=== PATIENT | male | born 1990 | race Caucasian/White ===

== ENCOUNTER 2016-06-16 01:41 | Inpatient (IN) | payer MEDICAID ==
[~2016-06-16] VITALS: Ht 172.7 cm; Wt 98.8 kg
[~2016-06-16 01:41] MED LIST: ILOP2TAB2 PO; ILOP4TAB2 PO
[2016-06-16 03:02] VITALS: BP 146/69
[2016-06-16] MEDS ORDERED: LORazepam 2 MG TABLET PO PRN (04:15)
[2016-06-16] MEDS ORDERED: ZOLPIDEM TARTRATE 10 MG TABLET PO PRN (04:15)
[2016-06-16 05:16] LABS: BASOPHILS # (AUTO) 0.03 K/uL (0.00-0.20); BASOPHILS % (AUTO) 0.2 % (0.0-2.0); EOSINOPHILS # (AUTO) 0.43 K/uL (0.00-0.70); HEMATOCRIT 46.9 % (41-53); HEMOGLOBIN 15.5 g/dL (13.5-17.5); LYMPHOCYTES # (AUTO) 2.9 K/uL (1.0-4.8); LYMPHOCYTES % (AUTO) 19.5 % (22.0-44.0); MEAN CORPUSCULAR HEMOGLOBIN 30.1 pg (26.0-34.0); MEAN CORPUSCULAR HGB CONC 32.9 G/dL (31.0-37.0); MEAN CORPUSCULAR VOLUME 91 fL (80-100); MONOCYTES # (AUTO) 1.3 K/uL (0.1-1.0); MONOCYTES % (AUTO) 8.4 % (2.0-9.0); NEUTROPHILS # (AUTO) 10.3 K/uL (1.8-7.7); PLATELET COUNT (AUTO) 282 K/uL (150-450); RED BLOOD CELL COUNT(AUTO) 5.14 MIL/uL (4.50-5.90); RED CELL DISTRIBUTION WIDTH 12.6 % (11.5-14.5); WHITE BLOOD COUNT (AUTO) 14.9 K/uL (4.5-11.0)
[2016-06-16 05:25] LABS: ANION GAP 6 mmol/L (8-16); CALCIUM, TOTAL 9.2 mg/dL (8.8-10.5); CARBON DIOXIDE 31 mmol/L (22-29); CHLORIDE 103 mmol/L (98-107); CREATININE 0.99 mg/dL (0.60-1.30); GLOMERULAR FILTR. RATE CALC > 60 mL/min (>60); POTASSIUM 4.8 mmol/L (3.5-5.1); SODIUM SERUM 140 mmol/L (136-145); UREA NITROGEN, BLOOD 21 mg/dL (7-18)
[2016-06-16 05:33] LABS: ALANINE AMINOTRANSFERASE 34 U/L (12-78); ALBUMIN 4.1 g/dL (3.4-5.0); ASPARTATE AMINOTRANSFERASE 16 U/L (15-37); BILIRUBIN,TOTAL 0.4 mg/dL (0.1-1.0); TOTAL PROTEIN, SERUM 8.3 g/dL (6.4-8.2)
[2016-06-16 14:28] VITALS: BP 130/79
[2016-06-16] MEDS: QUEtiapine FUMARATE 100 MG TABLET PO PRN ×2 (14:32→21:42)
[2016-06-16] MEDS ORDERED: ACETAMINOPHEN 650 MG/20.3 ML SOLUTION UDCUP PO PRN (15:00)
[2016-06-16] MEDS ORDERED: IBUPROFEN 600 MG TABLET PO PRN (15:00)
[2016-06-16] MEDS ORDERED: ACETAMINOPHEN 325 MG TABLET PO PRN (15:30)
[2016-06-16 16:00] VITALS: BP 108/63
[2016-06-16] MEDS ORDERED: PNEUMOCOCCAL VACCINE POLYVALENT 0.5 ML VIAL [PPSV23] IM ONE (17:15)
[2016-06-16] MEDS: DiphenhydrAMINE/ZINC ACET 30 GM CREAM TP SCH (17:36)
[2016-06-16] MEDS: DiphenhydrAMINE HCL 25 MG CAPSULE PO SCH (17:36)
[2016-06-16] MEDS: OLANZapine 5 MG TABLET PO SCH (21:44)
[2016-06-17 03:54] VITALS: BP 102/68
[2016-06-17 08:39] VITALS: BP 107/70
[2016-06-17] MEDS: DiphenhydrAMINE HCL 25 MG CAPSULE PO SCH ×2 (09:17→17:11)
[2016-06-17] MEDS: DiphenhydrAMINE/ZINC ACET 30 GM CREAM TP SCH ×2 (09:17→17:11)
[2016-06-17] MEDS: FLUoxetine HCL 20 MG CAPSULE PO SCH (09:17)
[2016-06-17 16:25] VITALS: BP 122/78
[2016-06-17] MEDS: OLANZapine 5 MG TABLET PO SCH (20:27)
[2016-06-18 00:15] VITALS: BP 113/65
[2016-06-18 08:30] VITALS: BP 109/62
[2016-06-18] MEDS: DiphenhydrAMINE HCL 25 MG CAPSULE PO SCH ×2 (09:13→16:47)
[2016-06-18] MEDS: DiphenhydrAMINE/ZINC ACET 30 GM CREAM TP SCH ×2 (09:13→16:47)
[2016-06-18] MEDS: FLUoxetine HCL 20 MG CAPSULE PO SCH (09:13)
[2016-06-18 16:48] VITALS: BP 131/67
[2016-06-18] MEDS: OLANZapine 5 MG TABLET PO SCH (20:07)
[2016-06-19 02:32] VITALS: BP 131/67
[2016-06-19 07:51] LABS: BASOPHILS # (AUTO) 0.03 K/uL (0.00-0.20); BASOPHILS % (AUTO) 0.4 % (0.0-2.0); EOSINOPHILS # (AUTO) 0.37 K/uL (0.00-0.70); EOSINOPHILS % (AUTO) 4.92 % (1.0-6.0); HEMATOCRIT 44.5 % (41-53); HEMOGLOBIN 14.9 g/dL (13.5-17.5); LYMPHOCYTES # (AUTO) 2.5 K/uL (1.0-4.8); LYMPHOCYTES % (AUTO) 32.5 % (22.0-44.0); MEAN CORPUSCULAR HEMOGLOBIN 30.1 pg (26.0-34.0); MEAN CORPUSCULAR HGB CONC 33.4 G/dL (31.0-37.0); MEAN CORPUSCULAR VOLUME 90 fL (80-100); MONOCYTES # (AUTO) 0.6 K/uL (0.1-1.0); MONOCYTES % (AUTO) 7.4 % (2.0-9.0); NEUTROPHILS # (AUTO) 4.2 K/uL (1.8-7.7); NEUTROPHILS % (AUTO) 54.7 % (40.0-70.0); PLATELET COUNT (AUTO) 266 K/uL (150-450); RED BLOOD CELL COUNT(AUTO) 4.94 MIL/uL (4.50-5.90); RED CELL DISTRIBUTION WIDTH 12.7 % (11.5-14.5); WHITE BLOOD COUNT (AUTO) 7.6 K/uL (4.5-11.0)
[2016-06-19 08:16] VITALS: BP 117/61
[2016-06-19] MEDS: DiphenhydrAMINE HCL 25 MG CAPSULE PO SCH ×3 (09:00→16:41)
[2016-06-19] MEDS: QUEtiapine FUMARATE 100 MG TABLET PO PRN (09:12)
[2016-06-19] MEDS: FLUoxetine HCL 20 MG CAPSULE PO SCH (09:12)
[2016-06-19] MEDS: DiphenhydrAMINE/ZINC ACET 30 GM CREAM TP SCH ×2 (09:12→16:41)
[2016-06-19 16:26] VITALS: BP 100/59
[2016-06-19] MEDS ORDERED: OLANZapine 10 MG TABLET PO SCH (21:00)
[2016-06-20 00:56] VITALS: BP 109/68
[2016-06-20 08:28] VITALS: BP 103/56
[2016-06-20] MEDS ORDERED: DiphenhydrAMINE HCL 25 MG CAPSULE PO PRN (09:00)
[2016-06-20] MEDS ORDERED: DiphenhydrAMINE/ZINC ACET 30 GM CREAM TP PRN (09:00)
[2016-06-20] MEDS: FLUoxetine HCL 20 MG CAPSULE PO SCH (09:41)
[2016-06-20 16:00] VITALS: BP 108/70
[2016-06-20] MEDS: OLANZapine 10 MG TABLET PO SCH (21:42)
[2016-06-21 00:07] VITALS: BP 102/65
[2016-06-21 08:15] VITALS: BP 108/63
[2016-06-21] MEDS: FLUoxetine HCL 20 MG CAPSULE PO SCH (08:59)
[2016-06-21 16:00] VITALS: BP 110/79
[2016-06-21] MEDS: OLANZapine 10 MG TABLET PO SCH (20:29)
[2016-06-22 02:30] VITALS: BP 111/65
[2016-06-22 08:11] VITALS: BP 106/61
[2016-06-22] MEDS ORDERED: FLUoxetine HCL 20 MG CAPSULE PO SCH (09:00)
[2016-06-22] MEDS ORDERED: OLAN10TA3 PO (13:26)
[2016-06-22] MEDS ORDERED: FLUO-191 PO (13:26)
== END 2016-06-22 14:10 | disposition home or self-care (01) | DRG 750 ==
LOC: EMS 04:47 → B2S 13:14
PROVIDERS: ADMIT Psychiatry & Neurology Psychiatry; ATTEND Psychiatry & Neurology Psychiatry
DX: F25.0 Schizoaffective disorder, bipolar type (principal); R45.851 Suicidal ideations; F41.9 Anxiety disorder, unspecified; F60.3 Borderline personality disorder; G47.00 Insomnia, unspecified; L50.9 Urticaria, unspecified; Z28.21 Immunization not carried out because of patient refusal; Z88.8 Allergy status to other drugs, medicaments and biological substances; Z79.899 Other long term (current) drug therapy; Z91.5 Personal history of self-harm; Z62.819 Personal history of unspecified abuse in childhood
CPT/HCPCS: 99285; G0480

== ENCOUNTER 2017-06-26 08:58 | Inpatient (IN) | payer MEDICAID ==
[~2017-06-26] VITALS: Ht 172.7 cm; Wt 112.0 kg
[~2017-06-26 08:58] MED LIST changes: +FLUO-191 PO; -ILOP2TAB2 PO; -ILOP4TAB2 PO; +OLAN10TA3 PO
[2017-06-26 09:15] VITALS: BP 108/75
[2017-06-26] MEDS ORDERED: ZOLPIDEM TARTRATE 10 MG TABLET PO PRN (10:30)
[2017-06-26] MEDS ORDERED: ILOP4TAB2 PO (10:38)
[2017-06-26 11:58] VITALS: BP 124/70
[2017-06-26 16:05] VITALS: BP 116/72
[2017-06-26] MEDS: LORazepam 2 MG TABLET PO PRN (17:25)
[2017-06-27 06:44] VITALS: BP 129/85
[2017-06-27 08:12] VITALS: BP 116/67
[2017-06-27 09:36] LABS: BASOPHILS % (AUTO) 0.8 % (0.0-2.0); EOSINOPHILS % (AUTO) 4.6 % (1.0-6.0); HEMATOCRIT 41.4 % (41-53); HEMOGLOBIN 14.5 g/dL (13.5-17.5); LYMPHOCYTES % (AUTO) 24.3 % (22.0-44.0); MEAN CORPUSCULAR HEMOGLOBIN 30.9 pg (26.0-34.0); MEAN CORPUSCULAR VOLUME 88 fL (80-100); MONOCYTES # (AUTO) 0.7 K/uL (0.1-1.0); MONOCYTES % (AUTO) 8.4 % (2.0-9.0); NEUTROPHILS # (AUTO) 5.1 K/uL (1.8-7.7); NEUTROPHILS % (AUTO) 61.9 % (40.0-70.0); PLATELET COUNT (AUTO) 269 K/uL (150-450); RED BLOOD CELL COUNT(AUTO) 4.69 MIL/uL (4.50-5.90); RED CELL DISTRIBUTION WIDTH 12.8 % (11.5-14.5)
[2017-06-27 09:57] LABS: HEMOGLOBIN A1C 5.9 % (4.5-6.2)
[2017-06-27 10:32] LABS: ALANINE AMINOTRANSFERASE 52 U/L (12-78); ALBUMIN 3.4 g/dL (3.4-5.0); ALKALINE PHOSPHATASE 97 U/L (46-116); ANION GAP 6 mmol/L (8-16); ASPARTATE AMINOTRANSFERASE 23 U/L (15-37); BILIRUBIN,TOTAL 0.3 mg/dL (0.1-1.0); CALCIUM, TOTAL 8.4 mg/dL (8.8-10.5); CARBON DIOXIDE 28 mmol/L (22-29); CHLORIDE 103 mmol/L (98-107); CHOLESTEROL 174 mg/dL (131-200); CREATININE 0.77 mg/dL (0.60-1.30); FREE T4 (FREE THYROXINE) 0.86 ng/dL (0.76-1.46); GLOMERULAR FILTR. RATE CALC > 60 mL/min (>60); GLUCOSE,RANDOM 95 mg/dL (70-110); HDL CHOLESTEROL 25 mg/dL (40-60); LDL CHOL (CALC.) 111 mg/dL (0-130); POTASSIUM 3.9 mmol/L (3.5-5.1); SODIUM SERUM 137 mmol/L (136-145); THYROID STIMULATING HORMONE 1.39 uIU/mL (0.36-3.74); TOTAL PROTEIN, SERUM 7.3 g/dL (6.4-8.2); TRIGLYCERIDES 192 mg/dL (15-150); UREA NITROGEN, BLOOD 11 mg/dL (7-18)
[2017-06-27 10:56] LABS: APPEARANCE,URINE CLOUDY (CLEAR)
[2017-06-27 10:57] LABS: BILIRUBIN,URINE NEGATIVE (NEGATIVE); GLUCOSE, URINE (UA) NEGATIVE (NEGATIVE); KETONES,URINE NEGATIVE (NEGATIVE); LEUKOCYTE ESTERASE ,URINE NEGATIVE (NEGATIVE); NITRATE,URINE NEGATIVE (NEGATIVE); OCCULT BLOOD,URINE TRACE (NEGATIVE); PROTEIN,URINE NEGATIVE (NEGATIVE)
[2017-06-27 10:58] LABS: BACTERIA,URINE Few /HPF (None Seen); RBC,URINE 0-2 /HPF (0-2); WBC,URINE 0-2 /HPF (0-5)
[2017-06-27 10:59] LABS: AMORPHOUS SEDIMENT,UR Many /LPF (None Seen); CALCIUM OXALATE CRYSTALS,UR Few /LPF (None Seen); SQUAMOUS EPITHELIAL CELL,UR Rare /LPF (None Seen)
[2017-06-27] MEDS: ILOPERIDONE 4 MG TABLET PO SCH (10:59)
[2017-06-27 11:40] LABS: AMPHET/METH SCREEN,URINE NEGATIVE (NEGATIVE); BARBITURATE SCREEN, URINE NEGATIVE (NEGATIVE); BENZODIAZEPINES SCREEN,URINE NEGATIVE (NEGATIVE); CANNABINOID SCREEN,URINE NEGATIVE (NEGATIVE); COCAINE SCREEN,URINE NEGATIVE (NEGATIVE); METHADONE SCREEN, URINE NEGATIVE (NEGATIVE); OPIATE SCREEN,URINE NEGATIVE (NEGATIVE)
[2017-06-27 11:42] LABS: PHENCYCLIDINE SCREEN,URINE NEGATIVE (NEGATIVE)
[2017-06-27] MEDS ORDERED: IBUPROFEN 600 MG TABLET PO PRN (12:00)
[2017-06-27] MEDS: FLUoxetine HCL 20 MG CAPSULE PO SCH (12:44)
[2017-06-27 16:00] VITALS: BP 110/64
[2017-06-27] MEDS: LORazepam 2 MG TABLET PO PRN (16:58)
[2017-06-28 07:18] VITALS: BP 116/65
[2017-06-28 08:11] VITALS: BP 105/65
[2017-06-28] MEDS: ILOPERIDONE 4 MG TABLET PO SCH (08:35)
[2017-06-28] MEDS: FLUoxetine HCL 20 MG CAPSULE PO SCH (08:35)
[2017-06-28] MEDS: NITROFURANTOIN/NITROFURAN MAC 100 MG CAPSULE [MACROBID] PO SCH ×2 (11:19→16:38)
[2017-06-28 16:00] VITALS: BP 120/68
[2017-06-28] MEDS: QUEtiapine FUMARATE 100 MG TABLET PO PRN (16:38)
[2017-06-28] MEDS: LORazepam 2 MG TABLET PO PRN (16:38)
[2017-06-29 06:19] VITALS: BP 112/74
[2017-06-29 08:20] VITALS: BP 110/69
[2017-06-29] MEDS: NITROFURANTOIN/NITROFURAN MAC 100 MG CAPSULE [MACROBID] PO SCH ×2 (08:41→16:34)
[2017-06-29] MEDS: FLUoxetine HCL 20 MG CAPSULE PO SCH (08:41)
[2017-06-29] MEDS: ILOPERIDONE 4 MG TABLET PO SCH (08:41)
[2017-06-29 16:00] VITALS: BP 114/72
[2017-06-29] MEDS: LORazepam 2 MG TABLET PO PRN (16:34)
[2017-06-30 06:31] VITALS: BP 109/65
[2017-06-30] MEDS: NITROFURANTOIN/NITROFURAN MAC 100 MG CAPSULE [MACROBID] PO SCH ×2 (08:36→17:25)
[2017-06-30] MEDS: ILOPERIDONE 4 MG TABLET PO SCH (08:36)
[2017-06-30] MEDS: FLUoxetine HCL 20 MG CAPSULE PO SCH (08:36)
[2017-06-30 08:47] VITALS: BP 118/65
[2017-06-30 10:30] VITALS: BP 116/66
[2017-06-30 11:49] VITALS: BP 118/68
[2017-06-30 16:33] VITALS: BP 131/98
[2017-07-01 06:27] VITALS: BP 113/69
[2017-07-01 08:21] VITALS: BP 117/68
[2017-07-01] MEDS: ILOPERIDONE 4 MG TABLET PO SCH (08:37)
[2017-07-01] MEDS: FLUoxetine HCL 20 MG CAPSULE PO SCH (08:37)
[2017-07-01 16:05] VITALS: BP 130/65
[2017-07-02 06:43] VITALS: BP 111/63
[2017-07-02 08:12] VITALS: BP 130/72
[2017-07-02] MEDS: ILOPERIDONE 4 MG TABLET PO SCH (08:43)
[2017-07-02] MEDS: FLUoxetine HCL 20 MG CAPSULE PO SCH (08:43)
[2017-07-02 16:00] VITALS: BP 116/80
[2017-07-02] MEDS: LORazepam 2 MG TABLET PO PRN (16:27)
[2017-07-02] MEDS: QUEtiapine FUMARATE 100 MG TABLET PO PRN (16:27)
[2017-07-03 06:33] VITALS: BP 118/68
[2017-07-03 08:13] VITALS: BP 112/69
[2017-07-03] MEDS: LORazepam 2 MG TABLET PO PRN (08:57)
[2017-07-03] MEDS: ILOPERIDONE 4 MG TABLET PO SCH (08:57)
[2017-07-03] MEDS: FLUoxetine HCL 20 MG CAPSULE PO SCH (08:57)
[2017-07-03 17:20] VITALS: BP 111/62
[2017-07-04 01:00] VITALS: BP 118/68
[2017-07-04 08:22] VITALS: BP 110/61
[2017-07-04] MEDS: ILOPERIDONE 4 MG TABLET PO SCH (08:38)
[2017-07-04] MEDS: FLUoxetine HCL 20 MG CAPSULE PO SCH (08:38)
[2017-07-04] MEDS: LORazepam 2 MG TABLET PO PRN (08:38)
[2017-07-04 16:06] VITALS: BP 106/66
[2017-07-05 05:13] VITALS: BP 110/61
[2017-07-05 07:52] VITALS: BP 100/67
[2017-07-05 08:01] VITALS: BP 100/67
[2017-07-05] MEDS: FLUoxetine HCL 20 MG CAPSULE PO SCH (08:54)
[2017-07-05] MEDS: ILOPERIDONE 4 MG TABLET PO SCH (08:55)
[2017-07-05 16:01] VITALS: BP 122/75
[2017-07-06 05:35] VITALS: BP 104/60
[2017-07-06 08:01] VITALS: BP 111/73
[2017-07-06] MEDS: FLUoxetine HCL 20 MG CAPSULE PO SCH (08:23)
[2017-07-06] MEDS: ILOPERIDONE 4 MG TABLET PO SCH (08:24)
[2017-07-06] MEDS ORDERED: FLUO-191 PO ×2 (10:16→10:47)
[2017-07-06] MEDS ORDERED: ILOP4TAB2 PO (10:47)
== END 2017-07-06 15:40 | disposition home or self-care (01) | DRG 750 ==
LOC: B3A 11:41 → B2S 07-04 10:24
DX: F25.1 Schizoaffective disorder, depressive type (principal); R45.851 Suicidal ideations; Z91.14 Patient's other noncompliance with medication regimen; Z79.899 Other long term (current) drug therapy; Z88.8 Allergy status to other drugs, medicaments and biological substances; Z91.018 Allergy to other foods
CPT/HCPCS: 80307; 83036; 84439; 84443

== ENCOUNTER 2017-07-08 00:21 | Inpatient (IN) | payer MEDICAID ==
[~2017-07-08] VITALS: Ht 172.7 cm; Wt 114.3 kg
[~2017-07-08 00:21] MED LIST changes: +ILOP4TAB2 PO; -OLAN10TA3 PO
[2017-07-08] MEDS ORDERED: QUEtiapine FUMARATE 200 MG TABLET PO ONE (01:00)
[2017-07-08 01:32] LABS: EOSINOPHILS % (AUTO) 3.2 % (1.0-6.0); HEMATOCRIT 38.8 % (41-53); HEMOGLOBIN 13.7 g/dL (13.5-17.5); LYMPHOCYTES # (AUTO) 3.3 K/uL (1.0-4.8); LYMPHOCYTES % (AUTO) 37.9 % (22.0-44.0); MEAN CORPUSCULAR HEMOGLOBIN 31.2 pg (26.0-34.0); MEAN CORPUSCULAR HGB CONC 35.4 G/dL (31.0-37.0); MEAN CORPUSCULAR VOLUME 88 fL (80-100); MONOCYTES # (AUTO) 0.8 K/uL (0.1-1.0); MONOCYTES % (AUTO) 8.9 % (2.0-9.0); NEUTROPHILS # (AUTO) 4.2 K/uL (1.8-7.7); PLATELET COUNT (AUTO) 245 K/uL (150-450); RED CELL DISTRIBUTION WIDTH 12.6 % (11.5-14.5)
[2017-07-08 01:39] LABS: ANION GAP 6 mmol/L (8-16); CARBON DIOXIDE 27 mmol/L (22-29); CHLORIDE 108 mmol/L (98-107); CREATININE 1.11 mg/dL (0.60-1.30); GLOMERULAR FILTR. RATE CALC > 60 mL/min (>60); GLUCOSE,RANDOM 132 mg/dL (70-110); POTASSIUM 3.7 mmol/L (3.5-5.1); SODIUM SERUM 141 mmol/L (136-145); UREA NITROGEN, BLOOD 13 mg/dL (7-18)
[2017-07-08 01:41] LABS: AMPHET/METH SCREEN,URINE NEGATIVE (NEGATIVE); BARBITURATE SCREEN, URINE NEGATIVE (NEGATIVE); BENZODIAZEPINES SCREEN,URINE NEGATIVE (NEGATIVE); CANNABINOID SCREEN,URINE NEGATIVE (NEGATIVE); COCAINE SCREEN,URINE NEGATIVE (NEGATIVE); METHADONE SCREEN, URINE NEGATIVE (NEGATIVE); OPIATE SCREEN,URINE NEGATIVE (NEGATIVE)
[2017-07-08 01:42] LABS: PHENCYCLIDINE SCREEN,URINE NEGATIVE (NEGATIVE)
[2017-07-08 01:46] LABS: ALANINE AMINOTRANSFERASE 42 U/L (12-78); ALBUMIN 3.3 g/dL (3.4-5.0); ALKALINE PHOSPHATASE 127 U/L (46-116); ASPARTATE AMINOTRANSFERASE 20 U/L (15-37); BILIRUBIN,TOTAL 0.1 mg/dL (0.1-1.0); TOTAL PROTEIN, SERUM 7.1 g/dL (6.4-8.2)
[2017-07-08] MEDS ORDERED: LORazepam 2 MG TABLET PO PRN (02:15)
[2017-07-08] MEDS ORDERED: ZOLPIDEM TARTRATE 10 MG TABLET PO PRN (02:15)
[2017-07-08] MEDS ORDERED: QUEtiapine FUMARATE 100 MG TABLET PO PRN (02:15)
[2017-07-08 11:00] VITALS: BP 111/65
[2017-07-08 11:58] LABS: APPEARANCE,URINE TURBID (CLEAR); BILIRUBIN,URINE NEGATIVE (NEGATIVE); GLUCOSE, URINE (UA) NEGATIVE (NEGATIVE); KETONES,URINE NEGATIVE (NEGATIVE); LEUKOCYTE ESTERASE ,URINE NEGATIVE (NEGATIVE); NITRATE,URINE NEGATIVE (NEGATIVE); OCCULT BLOOD,URINE TRACE (NEGATIVE); PROTEIN,URINE NEGATIVE (NEGATIVE); UROBILINOGEN,URINE 0.2 mg/dL (<=1.0)
[2017-07-08 12:13] LABS: AMORPHOUS SEDIMENT,UR Many /LPF (None Seen); BACTERIA,URINE None Seen /HPF (None Seen); RBC,URINE None Seen /HPF (0-2); SQUAMOUS EPITHELIAL CELL,UR Rare /LPF (None Seen); WBC,URINE None Seen /HPF (0-5)
[2017-07-08 17:36] VITALS: BP 131/70
[2017-07-09 07:21] VITALS: BP 113/69
[2017-07-09 08:00] VITALS: BP 113/77
[2017-07-09] MEDS: FLUoxetine HCL 20 MG CAPSULE PO SCH (11:19)
[2017-07-09] MEDS: ILOPERIDONE 4 MG TABLET PO SCH (13:40)
[2017-07-09 16:25] VITALS: BP 122/72
[2017-07-10 06:20] VITALS: BP 121/68
[2017-07-10 08:15] VITALS: BP 123/72
[2017-07-10] MEDS: ILOPERIDONE 4 MG TABLET PO SCH (08:30)
[2017-07-10] MEDS: FLUoxetine HCL 20 MG CAPSULE PO SCH (08:31)
[2017-07-10 16:25] VITALS: BP 114/70
[2017-07-11 05:48] VITALS: BP 110/73
[2017-07-11 08:45] VITALS: BP 121/60
[2017-07-11] MEDS: FLUoxetine HCL 20 MG CAPSULE PO SCH (08:50)
[2017-07-11] MEDS: ILOPERIDONE 4 MG TABLET PO SCH (08:50)
[2017-07-11 16:20] VITALS: BP 110/80
[2017-07-12 05:56] VITALS: BP 118/62
[2017-07-12 08:40] VITALS: BP 119/68
[2017-07-12] MEDS: ILOPERIDONE 4 MG TABLET PO SCH (08:53)
[2017-07-12] MEDS: FLUoxetine HCL 20 MG CAPSULE PO SCH (08:53)
[2017-07-12] MEDS ORDERED: FLUO-191 PO (10:38)
[2017-07-12] MEDS ORDERED: ILOP4TAB2 PO (10:38)
== END 2017-07-12 17:00 | disposition home or self-care (01) | DRG 750 ==
LOC: EMS 00:22 → AHU 11:00 → B2S 11:02
DX: F25.1 Schizoaffective disorder, depressive type (principal); R45.851 Suicidal ideations; Z79.899 Other long term (current) drug therapy; Z88.8 Allergy status to other drugs, medicaments and biological substances; Z91.018 Allergy to other foods
CPT/HCPCS: 87081; 99285; G0480

== ENCOUNTER 2021-01-07 17:07 | Emergency (ER) | payer MEDICAID, OTHER ==
[~2021-01-07] VITALS: Ht 177.8 cm; Wt 79.5 kg
[2021-01-07] MEDS ORDERED: ARIP5TAB37 PO (17:15)
[2021-01-07] MEDS ORDERED: IBUPROFEN 600 MG TABLET PO ONE (18:00)
[2021-01-07 18:53] VITALS: BP 113/76
== END 2021-01-07 20:36 | disposition home or self-care (01) ==
LOC: EMS 17:49
DX: S92.252A Displaced fracture of navicular [scaphoid] of left foot, initial encounter for closed fracture (principal); W18.39XA Other fall on same level, initial encounter; Y93.89 Activity, other specified; Y92.89 Other specified places as the place of occurrence of the external cause; Y99.8 Other external cause status
CPT/HCPCS: 99284; 73110-TC; 73130-TC; 73630-TC; Z7502; Z7610